=== PATIENT | male | born 1970 | race Two or more races ===

== ENCOUNTER 2022-10-06 10:38 | Emergency (ER) | payer BC ==
[2022-10-06 11:49] LABS: CORONAVIRUS COVID-19 NAA NEGATIVE (NEGATIVE); INFLUENZA A NAA NEGATIVE (NEGATIVE); INFLUENZA B NAA NEGATIVE (NEGATIVE); RESPIRATORY SYNCYTIAL VIR NAA NEGATIVE (NEGATIVE)
== END 2022-10-06 12:12 | disposition home or self-care (01) ==
LOC: MW.ED 10:38
DX: J01.10 Acute frontal sinusitis, unspecified (principal); Z20.822 Contact with and (suspected) exposure to COVID-19
CPT/HCPCS: 0241U; 99284